=== PATIENT | female | born 1985 | race Caucasian/White ===

== ENCOUNTER → 2016-10-18 | Outpatient (CLI) | payer BC | LOC: FIMAGING 12:30 | PROVIDERS: ATTEND Obstetrics & Gynecology | DX: O34.12 Maternal care for benign tumor of corpus uteri, second trimester (principal); Z3A.13 13 weeks gestation of pregnancy ==

== ENCOUNTER → 2016-11-30 | Outpatient (CLI) | payer OTHER | LOC: FIMAGING 10:02 | PROVIDERS: ATTEND Advanced Practice Midwife | DX: O34.12 Maternal care for benign tumor of corpus uteri, second trimester (principal); Z3A.19 19 weeks gestation of pregnancy ==

== ENCOUNTER 2017-05-01 22:24 | Inpatient (IN) | payer OTHER ==
[2017-05-01] MEDS ORDERED: TERBUTALINE SULFATE 1 MG/ML VIAL IV PRN (22:56)
[2017-05-01] MEDS ORDERED: OLIVE OIL 118 ML BTL MISC PRN (22:56)
[2017-05-01] MEDS ORDERED: OXYTOCIN/RINGERS LACTATE 1,000 ML IV PRN (22:56)
[2017-05-01] MEDS ORDERED: LR 1,000 ML IV PRN (22:56)
[2017-05-01] MEDS ORDERED: EPSOM SALT 454 GM TP PRN (22:56)
[2017-05-01 23:15] LABS: ADD DIFF? YES; ADD MORPH? NO; ADD SCAN? NO; ATYPICAL LYMPHOCYTE FLAG 0 (0-99); FRAGMENT RBC FLAG 0 (0-99); HEMATOCRIT 36.1 % (38.0-47.0); HEMOGLOBIN 12.7 g/dL (12.6-16.3); LEFT SHIFT FLG 10 (0-99); LIPEMIA HEMOLYSIS FLAG 90 (0-99); MEAN CELL HEMOGLOBIN 32.5 pg (27.9-34.1); MEAN CELL HEMOGLOBIN CONCENTR. 35.2 g/dL (32.4-36.7); MEAN CELL VOLUME 92.3 fL (81.5-99.8); MEAN PLATELET VOLUME 10.6 fL (8.7-11.7); PLATELET CLUMPS FLAG 0 (0-99); PLATELET COUNT 189 10^3/uL (150-400); RED BLOOD CELL COUNT 3.91 10^6/uL (4.18-5.33); RED CELL DISTRIBUTION WIDTH 13.6 % (11.5-15.2)
[2017-05-01] MEDS ORDERED: PHENYLEPHRINE HCL 100 MCG/ML SYR ONE (23:46)
[2017-05-01] MEDS ORDERED: fentaNYL 100 MCG/2 ML INJ ONE (23:46)
[2017-05-01] MEDS ORDERED: fentaNYL 2MCG/ML/BUP 0.1% RTU 100 ML BAG EP ONE (23:46)
[2017-05-01] MEDS ORDERED: LIDOCAINE 2% 100 MG/5 ML SYR ONE (23:46)
[2017-05-01 23:53] LABS: PLATELET ESTIMATE ADEQUATE (ADEQ)
--- NOTE | 2017-05-02 00:24 | PREANESOB ---
Obstetric Pre-Anesthesia Info - General Info Proposed Procedure: MARIO : 1 Para: 0 - Info Status: Full Term Monitors: External FHR Pattern: Reassuring - Labor Status Cervical Dilation per last OB SVE: 6 Pitocin: Planned Indications for Labor Analgesia: Pain Control Labor Epidural: Proposed (RBA discussed) Anesthesia Allergies/Adverse Reactions: Allergy/AdvReac Type Severity Reaction Status Date / Time No Known Allergies Allergy Unverified 03/11/15 10:00 Home Medications: Medication Instructions Recorded NK [No Known Home Meds] 03/08/15 Visit Medications: Generic Name Dose Route Start Last Admin Trade Name Freq PRN Reason Stop Dose Admin Lactated Ringer's 1,000 mls @ 0 mls/hr 05/01/17 22:56 Lr IV 10/28/17 22:55 PRN PRN SEE PROTOCOL CONDITIONS Protocol Per Protocol Oxytocin/Lactated Ringer's 1,000 mls @ 150 mls/hr 05/01/17 22:56 Pitocin 20 Units/Lr (Premix) IV PRN PRN Post- bleeding Ampicillin Sodium 1 gm/ Sodium 100 mls @ 200 mls/hr 05/01/17 23:30 Chloride IV 05/31/17 23:29 Q4H JAVIER Protocol Ibuprofen 600 mg 05/01/17 22:56 Motrin PO 10/28/17 22:55 Q6HRS PRN post , inflammation Magnesium Sulfate 454 gm 05/01/17 22:56 Epsom Salt TP 10/28/17 22:55 Q1H PRN perineal discomfort [place] Oil 118 ml 05/01/17 22:56 Sweet Oil MISC 10/28/17 22:55 ONCE PRN perineal massage Terbutaline Sulfate 0.25 mg 05/01/17 22:56 Brethine IV 10/28/17 22:55 ONCE PRN Tachysystole Discontinued Medications Generic Name Dose Route Start Last Admin Trade Name Freq PRN Reason Stop Dose Admin Fentanyl Confirm 05/01/17 23:46 Sublimaze Administered 05/01/17 23:47 Dose 100 mcg .ROUTE .STK-MED ONE Fentanyl/Bupivacaine HCl Confirm 05/01/17 23:46 Fentanyl/Bupivacaine/Ns 2 Mcg/Ml 0.1% (Premix Administered 05/01/17 23:47 Dose 100 ml EP .STK-MED ONE Ampicillin Sodium 1 gm/ Sodium 100 mls @ 200 mls/hr 05/02/17 02:58 05/01/17 23:44 Chloride IV 06/01/17 02:57 100 mls Q4H JAVIER Administration Protocol Lidocaine HCl Confirm 05/01/17 23:46 Lidocaine Hcl 2% Administered 05/01/17 23:47 Dose 100 mg .ROUTE .STK-MED ONE Phenylephrine HCl Confirm 05/01/17 23:46 Neosynephrine Administered 05/01/17 23:47 Dose 1,000 mcg .ROUTE .STK-MED ONE - Focused Exam Height/Weight (Nursing): Height 170.18 cm Weight 82.554 kg Labs: 05/01/17 22:40 Patient ABO/Rh A NEGATIVE 05/01/17 22:40
[2017-05-02] MEDS ORDERED: ONDANSETRON 4 MG/2 ML VIAL IVP PRN (00:25)
[2017-05-02] MEDS ORDERED: fentaNYL 2MCG/ML/BUP 0.1% RTU 100 ML EP SCH (00:30)
[2017-05-02] MEDS ORDERED: LR 500 ML IV SCH (00:30)
[2017-05-02] MEDS ORDERED: OLIVE OIL 118 ML BTL ONE (00:36)
[2017-05-02] MEDS ORDERED: LIDOCAINE 1% 300 MG/30 ML SDV ONE (00:36)
[2017-05-02] MEDS ORDERED: MISOPROSTOL 200 MCG TAB ONE (00:37)
[2017-05-02] MEDS ORDERED: OXYTOCIN 10 UNIT/ML VIAL ONE (00:37)
[2017-05-02] MEDS ORDERED: AMMONIA AROMATIC 1 EACH AMP IH ONE (00:37)
[2017-05-02] MEDS ORDERED: TERBUTALINE SULFATE 1 MG/ML VIAL ONE (00:37)
--- NOTE | 2017-05-02 01:29 | GHP ---
[f rep st] PREOP HISTORY AND PHYSICAL DATE OF ADMISSION: 05/01/2017 ADMISSION DIAGNOSES: 1. Intrauterine at 41-2/7 weeks' gestation. 2. Replaced By [facility] transport for arrest of dilation and pain management, meconium- stained fluid and GBS positive. The patient is a 32-year-old 1, para 0, who has received care with the [facility] since September of 2016. The patient's has been uncomplicated. She was found to be GBS positive. She began going into labor at 11 in the morning on 05/01/2017. She had spontaneous rupture of membranes at 1630. Initially was noted to be clear fluid, but has since changed to thick meconium-stained fluid. She had been told that she was alternating between an anterior lip and 9 cm, and had been that dilation for at least 6 hours and was not making further progress, so she was transferred to the [facility] for pain management and possible augmentation of labor and because of the meconium-stained fluid. Upon arrival, status overall has been reassuring. The patient requested and did receive an epidural , which has provided adequate pain relief, and she has been given her second dose of ampicillin. Her white count on admission was 26. Patient has remained afebrile. Following placement of epidural, patient has had occasional decelerations when she has had several contractions in a row. I placed an IUPC , and she has oxygen on, and we have repositioned her multiple times. We have just given her 1 dose of terbutaline to decrease her contractions and let the baby recover, and will continue monitoring closely. PAST MEDICAL HISTORY: History of cervical dysplasia. MEDICATIONS: vitamins, folate, magnesium, feng flour, Syriac herbs. PAST SURGICAL HISTORY: None. ALLERGIES: No known drug allergies. SOCIAL HISTORY: Patient is . She denies tobacco, alcohol, or drug use. FAMILY MEDICAL HISTORY: Noncontributory. 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 She is dated by last menstrual period consistent with a 1st-trimester ultrasound. The patient does have a history of abnormal Pap smears and colposcopy x2. She has not had any excisional procedures on her cervix. She has a history of HPV. REVIEW OF SYSTEMS: A 10-point review of systems is negative. She has good movement, has spontaneous ruptured and meconium-stained fluid. No vaginal bleeding. Denies any headache, changes in vision, nausea, vomiting, fevers or chills. PHYSICAL EXAMINATION: VITAL SIGNS: Stable. GENERAL APPEARANCE: Alert and oriented x3 and uncomfortable prior to epidural. PSYCH: She has appropriate affect. NECK: Mobile and supple. HEART: Rate is regularly regular. LUNGS: Clear to auscultation bilaterally. ABDOMEN: Gravid, nondistended, nontender. EXTREMITIES: Reveal no calf tenderness or edema. PELVIC: She is 7-8 cm, 80% effaced, and at 0 station. She was having contractions every 2-5 minutes. heart tracing was category 3, but is now category 1. There are positive accelerations and no decelerations since receiving the terbutaline. LABORATORY DATA: Patient's labs: Blood type B negative. Antibody screen negative. Rubella immune. GBS positive. HBsAg negative. HIV nonreactive. Chlamydia and gonorrhea negative. Her 50 g glucose was 67. ASSESSMENT AND PLAN: A 32-year-old 1, para 0, at 41-2/7 weeks' gestation, who presented in active labor with arrest of dilation, need for pain management and meconium-stained fluid. She has received her second dose of ampicillin. She has received an epidural and is comfortable. She did have decelerations following placement of the epidural with subsequent contractions. So, she has been given terbutaline. There is an IUPC in place. The patient will be observed and if her contractions do not return spontaneously after the dose of terbutaline, will start Pitocin once status is maintained reassuring. Will monitor her closely. We had a long discussion about adequate contractions and indications for section. At this time, overall status is reassuring, so if it remains so we will start Pitocin if indicated, monitor her contractions and reassess as needed. /[id number]/MODL MTDD
[2017-05-02] MEDS ORDERED: AMPICILLIN SODIUM 1 GM in NS 100 ML IV SCH (02:58)
[2017-05-02] MEDS ORDERED: OXYTOCIN/LR *STANDARD DOSE PROTOCOL IV ONE (03:00)
[2017-05-02] MEDS ORDERED: OXYTOCIN/LR *STANDARD DOSE PROTOCOL IV SCH (03:00)
[2017-05-02] MEDS: AMPICILLIN SODIUM 1 GM in NS 100 ML IV SCH ×5 (03:04→18:28)
[2017-05-02] MEDS ORDERED: PHENYLEPHRINE HCL 100 MCG/ML SYR IVP PRN (05:02)
--- NOTE | 2017-05-02 06:19 | OBPROG ---
Labor Progress Note Assessment/Plan: Assessment: Plan: Subjective/Intrapartum Course: patient started labor and presented to the [facility] [place]. spontaneous rupture of membranes. initially clear fluid. turned to meconium. progressed to 9 cm per center. no change in 6 hours so came to [facility] for pain management and augmentation if needed. recieved epidural and exam after epidural was 7 cm. 05/02/17 06:15 patient is doing well. rested comfortably with epidural. after terbutaline given status improved. has had episodes of decreased variability, variable decels and late decels. amnioinfusion was started. still has thick meconium. status is very reassuring. spontaneous accelerations. no decelerations. pitocin is at 4 mu. mvus 120-130. continuing to slowly increase pitocin. discussed pelvis is very tight and my concern for CPD. because not adequate yet and status is still reassuring will continue to monitor with close observation. 05/02/17 06:22 Objective: 05/01/17 22:40 Patient ABO/Rh A NEGATIVE 05/01/17 22:40 Temp Pulse Resp BP Pulse Ox 71 105/58 L 05/02/17 00:37 05/02/17 00:37 - SVE Dilation (cm): 8, 9 Effacement (%): 80 Station: 0 Membranes: SROM Amniotic Fluid Color: Meconium Stained - Contraction Pattern Assessment Current Contraction Pattern: Regular - FHR Assessment Hernandez FHR (bpm): 140 FHR Pattern Variability: Moderate FHR Category: 1 - AP Antepartum Course: 05/02/17 06:19 initiated care at center at 8 weeks. uncomplicated . received rhogam for rh negative. normal glucola. - Physical Exam General Appearance: WD/WN, alert, no apparent distress Abdomen: normal bowel sounds, non-tender Extremities: normal range of motion, non-tender, normal inspection, normal capillary refill Skin: normal color, warm/dry Neuro/Psych: no motor/sensory deficits, alert, normal mood/affect, oriented x 3 Oxytocin Orders Assessment - Pre-Induction/Augmentation Assessment Gestational Age: 41 week(s) and 2 day(s) ICD10 Worksheet Patient Problems: Problems Problem Status Onset Chorioamnionitis, delivered, current hospitalization Acute First stage of labor Acute (normal spontaneous vaginal delivery) Acute
--- NOTE | 2017-05-02 08:10 | OBPROG ---
Labor Progress Note Assessment/Plan: Assessment: 32 y/o @ 41 + weeks transfer from [facility] secondary to arrest of dilation and thick meconium Plan: Good cervical progression now on pitocin augmentation. status is reassuring now. We will allow baby to passively descend and evaluate to start pushing in approximately 1 hour, or sooner if patient begins to feel an urge. I encouraged her to avoid pressing her bolus button now. 05/02/17 08:08 Subjective/Intrapartum Course: patient started labor and presented to the [facility] [place]. spontaneous rupture of membranes. initially clear fluid. turned to meconium. progressed to 9 cm. 05/02/17 06:15 patient is doing well. rested comfortably with epidural. after terbutaline given status improved. has had episodes of decreased variability, variable decels and late decels. amnioinfusion was started. still has thick meconium. status is very reassuring. spontaneous accelerations. no decelerations. pitocin is at 4 mu. mvus 120-130. continuing to slowly increase pitocin. discussed pelvis is very tight and my concern for CPD. because not adequate yet and status is still reassuring will continue to monitor with close observation. 05/02/17 06:22 05/02/17 08:06 I took over care of the patient this am and came into asses. She is comfortable with her epidural but feeling occasional contractions. Objective: 05/01/17 22:40 Patient ABO/Rh A NEGATIVE 05/01/17 22:40 Temp Pulse Resp BP Pulse Ox 71 105/58 L 05/02/17 00:37 05/02/17 00:37 - SVE Dilation (cm): 10 Effacement (%): 100 Station: 0 Membranes: SROM Amniotic Fluid Color: Meconium Stained - Contraction Pattern Assessment Current Contraction Pattern: Regular (Q 2-4) - FHR Assessment Hernandez FHR (bpm): 140 FHR Pattern Variability: Moderate FHR Category: 1 - AP Antepartum Course: 05/02/17 06:19 initiated care at [facility] at 8 weeks. uncomplicated . received rhogam for rh negative. normal glucola. Oxytocin Orders Assessment - Pre-Induction/Augmentation Assessment Gestational Age: 41 week(s) and 2 day(s) ICD10 Worksheet Patient Problems: Problems Problem Status Onset First stage of labor Acute
--- NOTE | 2017-05-02 09:49 | OBPROG ---
Labor Progress Note Assessment/Plan: Assessment:cat 2 fhr pain well managed with epidural 10/100/+2 feeling some pressure pushing begun pitocin off contractions q2-3 minutes apart Plan:begin pushing 05/02/17 09:48 Subjective/Intrapartum Course: patient started labor and presented to the [facility] [place]. spontaneous rupture of membranes. initially clear fluid. turned to meconium. progressed to 9 cm. 05/02/17 06:15 patient is doing well. rested comfortably with epidural. after terbutaline given status improved. has had episodes of decreased variability, variable decels and late decels. amnioinfusion was started. still has thick meconium. status is very reassuring. spontaneous accelerations. no decelerations. pitocin is at 4 mu. mvus 120-130. continuing to slowly increase pitocin. discussed pelvis is very tight and my concern for CPD. because not adequate yet and status is still reassuring will continue to monitor with close observation. 05/02/17 06:22 05/02/17 08:06 I took over care of the patient this am and came into asses. She is comfortable with her epidural but feeling occasional contractions. Objective: 05/01/17 22:40 Patient ABO/Rh A NEGATIVE 05/01/17 22:40 Temp Pulse Resp BP Pulse Ox 71 105/58 L 05/02/17 00:37 05/02/17 00:37 - SVE Membranes: SROM Amniotic Fluid Color: Meconium Stained - Contraction Pattern Assessment Current Contraction Pattern: Regular (Q 2-4) - AP Antepartum Course: 05/02/17 06:19 initiated care at center at 8 weeks. uncomplicated . received rhogam for rh negative. normal glucola. Oxytocin Orders Assessment - Pre-Induction/Augmentation Assessment Gestational Age: 41 week(s) and 2 day(s) ICD10 Worksheet Patient Problems: Problems Problem Status Onset First stage of labor Acute
[2017-05-02] MEDS ORDERED: ACETAMINOPHEN 500 MG TAB PO ONE (10:59)
[2017-05-02] MEDS ORDERED: GENTAMICIN SULFATE IV SCH ×2 (11:00→11:30)
[2017-05-02] MEDS ORDERED: D5W IV SCH ×2 (11:00→11:30)
[2017-05-02 13:18] LABS: BASE EXCESS CORD -8.2 mEq/L (-13.6--3.2); PH ARTERIAL CORD BLOOD 7.29 (7.10-7.37)
[2017-05-02 13:20] LABS: PH VENOUS CORD BLOOD 7.34 (7.20-7.42)
--- NOTE | 2017-05-02 13:36 | OBDEL ---
Info Type: Vaginal Presentation at Delivery: Vertex L&D Analgesia/Anesthesia Type: Epidural GBS+: Yes Antibiotic Used for + GBS: Ampicillin Intrapartum Medications: Generic Name Dose Route Start Last Admin Trade Name Landon PRN Reason Stop Dose Admin Ampicillin Sodium 1 gm/ Sodium 100 mls @ 200 mls/hr 05/01/17 23:30 05/02/17 11:30 Chloride IV 05/31/17 23:29 100 mls Q4H JAVIER Administration Protocol Lactated Ringer's 500 mls @ 0 mls/hr 05/02/17 00:30 05/02/17 07:03 Lr IV 10/29/17 00:29 500 mls CONT JAVIER Administration As Directed Gentamicin Sulfate 575 mg/ 114.375 mls @ 114.185 mls/hr 05/02/17 11:30 12:00 Dextrose IV 06/01/17 11:29 114.375 mls Q24H JAVIER Administration Protocol Terbutaline Sulfate 0.25 mg 05/01/17 22:56 05/02/17 00:37 Brethine IV 10/28/17 22:55 0.25 mg ONCE PRN Administration Tachysystole Discontinued Medications Generic Name Dose Route Start Last Admin Trade Name Landon PRN Reason Stop Dose Admin Acetaminophen 1,000 mg 05/02/17 10:59 05/02/17 11:30 Tylenol PO 05/02/17 11:00 1,000 mg ONCE ONE Administration Ampicillin Sodium 1 gm/ Sodium 100 mls @ 200 mls/hr 05/02/17 02:58 05/01/17 23:44 Chloride IV 06/01/17 02:57 100 mls Q4H JAVIER Administration Protocol Oxytocin 30 unit/ Lactated 503 mls @ 0 mls/hr 05/02/17 03:00 05/02/17 03:45 Ringer's IV 05/02/17 03:01 503 mls ONCE ONE Administration Protocol Per Protocol - Hospital Course Intrapartum: patient started labor and presented to the center [facility]. spontaneous rupture of membranes. initially clear fluid. turned to meconium. progressed to 9 cm. 05/02/17 06:15 patient is doing well. rested comfortably with epidural. after terbutaline given status improved. has had episodes of decreased variability, variable decels and late decels. amnioinfusion was started. still has thick meconium. status is very reassuring. spontaneous accelerations. no decelerations. pitocin is at 4 mu. mvus 120-130. continuing to slowly increase pitocin. discussed pelvis is very tight and my concern for CPD. because not adequate yet and status is still reassuring will continue to monitor with close observation. 05/02/17 06:22 05/02/17 08:06 I took over care of the patient this am and came into asses. She is comfortable with her epidural but feeling occasional contractions. Indications for Delivery: Spontaneous Labor, SROM Vaginal Delivery - Delivery Provider Delivery Physician/CNM: Suzie Schultz Proctoring Provider: Lena Zacarias - Labor and Delivery Onset of Contractions Date: 05/01/17 Onset of Contractions Time: 07:00 Onset of Contractions Type: Augmented Rupture of Membranes Date: 05/01/17 Rupture of Membranes Time: 16:30 Amniotic Fluid Color: Meconium Stained Dilation Complete Date: 05/02/17 Dilation Complete Time: 08:00 Placenta Delivery Date: 05/02/17 Placenta Delivery Time: 12:48 Total Hours of Labor: 29 Laceration: 1st Degree Repair: 3-0, Vicryl Vaginal Sponge Count Correct: Yes Vaginal Needle Count Correct: Yes Vaginal Sweep Performed: No EBL: 300 Delivery Events: None Cord Gases: Cord Gases Cord Blood PCO2 37.0 mmHg (37-60) 05/02/17 12:48 Cord Base Excess -8.2 mEq/L (-13.6--3.2) 05/02/17 12:48 Cord ABG pH 7.29 (7.10-7.37) 05/02/17 12:48 Cord VBG pH 7.34 (7.20-7.42) 05/02/17 12:48 - Medications Labor Augmentation/Induction Methods Used: Pitocin Operative Report - Delivery Cord Gases: Cord Gases Cord Blood PCO2 37.0 mmHg (37-60) 05/02/17 12:48 Cord Base Excess -8.2 mEq/L (-13.6--3.2) 05/02/17 12:48 Cord ABG pH 7.29 (7.10-7.37) 05/02/17 12:48 Cord VBG pH 7.34 (7.20-7.42) 05/02/17 12:48 [place] Data Hernandez Delivery Date: 05/02/17 Delivery Time: 12:43 KAMERON: 04/20/17 Gestational Age: 41 week(s) and 5 day(s) Sex of : Male Score (1 Min): 7 Score (5 Min): 8 ICD10 Worksheet Patient Problems: Problems Problem Status Onset Chorioamnionitis, delivered, current hospitalization Acute First stage of labor Acute (normal spontaneous vaginal delivery) Acute - ICD10 Problem Qualifiers (1) (normal spontaneous vaginal delivery) (2) Chorioamnionitis, delivered, current hospitalization
[2017-05-02] MEDS ORDERED: HYDROCODONE/APAP 5/325 TAB PO PRN (13:40)
[2017-05-02] MEDS ORDERED: HYDROCORTISONE 0.5% CREAM TP PRN (13:40)
[2017-05-02] MEDS ORDERED: ACETAMINOPHEN 325 MG TAB PO PRN (13:40)
[2017-05-02] MEDS ORDERED: SIMETHICONE 80 MG TAB CHEW PO PRN (13:40)
[2017-05-02] MEDS: IBUPROFEN 600 MG TAB PO PRN ×2 (15:50→21:50)
[2017-05-02] MEDS: DOCUSATE SODIUM 100 MG CAP PO PRN (21:50)
[2017-05-02 23:21] VITALS: O2SAT 94
[2017-05-03] MEDS: IBUPROFEN 600 MG TAB PO PRN ×3 (04:17→17:18)
--- NOTE | 2017-05-03 08:49 | OBPP ---
Progress Note Assessment/Plan: Assessment:pain well managed no ss of infection ff@u scant rubra lochia nipples sore well scant rubra lochia perineum approximated anemia Plan:discharge to home with instructions fu with the center, discussed , pain management ss infection, rest, depression, pericare, anemia , continue pnv, fu care hydration would like to go home today 05/02/17 09:48 05/03/17 08:46 Subjective/ Course: doing well after delivery no further ss of infection x 2 antibiotics in labor fever x 1 101 tylenol to assist with fever resolution, 2 degree laceration repair with 3.0 vicryl 05/03/17 08:49 Doing well denies difficulties, discharge to home today Objective: 05/03/17 05:00 Patient ABO/Rh A NEGATIVE 05/01/17 22:40 Temp Pulse Resp BP Pulse Ox 37.0 C 78 18 107/66 94 05/02/17 21:00 05/02/17 21:00 05/02/17 21:00 05/02/17 21:00 05/02/17 21:00 Uterine Position/Fundal Height: At Umbilicus Uterine Tone: Firm Physical Exam - Physical Exam General Appearance: WD/WN, alert, no apparent distress Abdomen: other (ff@u scant rubra lochia) Extremities: normal range of motion, Vandana's sign (negative bilaterally) DTR- Lower Extremities: Knee (R): 1+, Knee (L): 1+ Skin: normal color, warm/dry Neuro/Psych: no motor/sensory deficits, alert, normal mood/affect, oriented x 3
--- NOTE | 2017-05-03 08:59 | OBGCSDC ---
General Delivery Information - General Info : 1 Para: 0 Abortions: 0 Type: Vaginal L&D Analgesia/Anesthesia Type: Epidural Admission Date: 05/01/17 Labs: Patient ABO/Rh A NEGATIVE 05/01/17 22:40 Hct 32.8 % (38.0-47.0) L 05/03/17 05:00 - Hospital Course Antepartum: 05/02/17 06:19 initiated care at center at 8 weeks. uncomplicated . received rhogam for rh negative. normal glucola. Intrapartum: patient started labor and presented to the [facility] [place]. spontaneous rupture of membranes. initially clear fluid. turned to meconium. progressed to 9 cm per center. no change in 6 hours so came to [facility] for pain management and augmentation if needed. recieved epidural and exam after epidural was 7 cm. 05/02/17 06:15 patient is doing well. rested comfortably with epidural. after terbutaline given status improved. has had episodes of decreased variability, variable decels and late decels. amnioinfusion was started. still has thick meconium. status is very reassuring. spontaneous accelerations. no decelerations. pitocin is at 4 mu. mvus 120-130. continuing to slowly increase pitocin. discussed pelvis is very tight and my concern for CPD. because not adequate yet and status is still reassuring will continue to monitor with close observation. 05/02/17 06:22 : doing well after delivery no further ss of infection x 2 antibiotics in labor fever x 1 101 tylenol to assist with fever resolution, 2 degree laceration repair with 3.0 vicryl 05/03/17 08:49 Doing well denies difficulties, discharge to home today Vaginal - Delivery Provider Delivery Physician/CNM: Suzie Schultz - Diagnosis Labor: Augmented Amniotic Fluid Color: Meconium Stained Laceration: 1st Degree Repair: 3-0, Vicryl Delivery Events: None - Delivery EBL: 300 [place] Data Hernandez Delivery Date: 05/02/17 Delivery Time: 12:43 KAMERON: 04/20/17 Gestational Age: 41 week(s) and 6 day(s) Sex of Infant: Male Score (1 Min): 7 Score (5 Min): 8 Discharge Information - Discharge Information Prescriptions: Ibuprofen [Motrin (*)] 600 mg PO Q6HRS PRN #30 tab PRN Reason: post , inflammation Condition: Good
[2017-05-03 09:07] VITALS: BP 106/73; PULSE 71; RESP 16; TEMP 97.8
[2017-05-03] MEDS: DOCUSATE SODIUM 100 MG CAP PO PRN ×2 (10:06→17:18)
--- NOTE | 2017-05-03 10:08 | POSTANESTH ---
Post Anesthetic Evaluation Cardiovascular Status: Normal, Stable, Tx Over/Under Hydration Level of Consciousness/Mental Status: Can Participate in Eval Pain Control: Adequate, Prn Tx Ordered Nausea/Vomiting Control: Adequate, Prn Tx Ordered Complications Possibly Related to Anesthesia: None Noted
--- NOTE | 2017-05-03 10:11 | SOAPPROG ---
SOAP Progress Note Assessment/Plan: Assessment: POD 1 s/p epidural analgesia for labor. Unremarkable recovery. Plan: Continue routine post-op cares. Call with questions or concerns. 05/03/17 10:10 Subjective: Patient seen and examined on the floor. S/P epidural analgesia for labor. Doing well. Denies complaint. No LA toxicity symptoms. Denies urinary retention or LE weakness. Objective: Vital Signs Temp Pulse Resp BP Pulse Ox 36.6 C 71 16 106/73 94 05/03/17 09:06 05/03/17 09:06 05/03/17 09:06 05/03/17 09:06 05/03/17 09:06 Laboratory Results 05/03/17 05:00 Physical Exam - Physical Exam General Appearance: WD/WN Extremities: normal range of motion Neuro/Psych: no motor/sensory deficits ICD10 Worksheet Patient Problems: Problems Problem Status Onset Post-operative pain Acute - ICD10 Problem Qualifiers (1) (normal spontaneous vaginal delivery) (2) Post-operative pain
== END 2017-05-03 17:48 | disposition home or self-care (01) | DRG 775 ==
LOC: FLD 22:24 → FOB 05-02 15:20
PROVIDERS: ADMIT Obstetrics & Gynecology; ATTEND Obstetrics & Gynecology
PROC: 10E0XZZ Delivery of Products of Conception, External Approach (ICD-10-PCS; principal; 2017-05-02)
PROC: 0HQ9XZZ Repair Perineum Skin, External Approach (ICD-10-PCS; principal; 2017-05-02)
DX: O62.1 Secondary uterine inertia (principal); Z37.0 Single live birth; O99.824 Streptococcus B carrier state complicating childbirth; O70.0 First degree perineal laceration during delivery; Z3A.41 41 weeks gestation of pregnancy
CPT/HCPCS: J0290; J2001; J2370; J2590; J3010; J3105

== ENCOUNTER → 2018-12-28 | Outpatient (CLI) | payer OTHER | LOC: FIMAGING 08:48 | PROVIDERS: ATTEND Advanced Practice Midwife | DX: Z34.82 Encounter for supervision of other normal pregnancy, second trimester (principal); Z3A.20 20 weeks gestation of pregnancy ==